=== PATIENT | male | born 1980 | race Caucasian/White ===

== ENCOUNTER 2021-03-13 20:50 | Emergency (ER) | payer BC | END 2021-03-13 21:45 | disposition home or self-care (01) | LOC: ERS 20:50 | DX: S60.222A Contusion of left hand, initial encounter (principal); F17.210 Nicotine dependence, cigarettes, uncomplicated; W23.0XXA Caught, crushed, jammed, or pinched between moving objects, initial encounter ==

== ENCOUNTER 2024-01-19 20:09 | Emergency (ER) | payer BC ==
[2024-01-19 20:33] LABS: #Basophils 0.06 10x3/uL (0.0-0.2); #Eosinophils Less than 0.03 10x3/uL (0.0-0.7); %Basophils 0.4 % (0.0-1.0); %Lymphocytes 14.8 % (21.0-51.0); %Monocytes 4.6 % (0.0-10.0); %Neutrophils 79.8 % (42.0-75.0); Hematocrit 43.8 % (42.0-52.0); Hemoglobin 14.7 g/dL (14.0-18.0); Mean Corpuscular HGB CONC 33.6 g/dL (32.0-36.0); Mean Corpuscular Hemoglobin 32.3 pg (27.0-31.0); Mean Corpuscular Volume 96.3 fL (78.0-98.0); Platelet Count 288 10x3/uL (130-400); RBC Distribution Width 13.8 % (11.5-14.5); Red Blood Cell (RBC) Count 4.55 mill/uL (4.70-6.10)
[2024-01-19 20:44] LABS: Bacteria/HPF None Seen HPF (None Seen); Bilirubin Negative (Negative); Blood, Urine Negative (Negative); CAUTI Indications for Culture Pelvic or flank pain; Clarity Extra Turbid (Clear); Glucose, Urine (Dipstick) Normal (Negative); Ketone, Urine Negative (Negative); Leukocyte Negative Leu/uL (Negative); Nitrite Negative (Negative); Protein, Urine (Dipstick) Negative (Neg-Trace); Specific Gravity, Urine 1.012 (1.002-1.036); Squamous Epithelial None Seen HPF (0-3); Urobilinogen Normal mg/dL (Less than 2); WBC/HPF 0-3 HPF (0-3)
[2024-01-19 20:46] LABS: ALT (SGPT) 10 U/L (8-55); AST (SGOT) 16 U/L (5-34); Albumin 4.4 g/dL (3.5-5.0); Alkaline Phosphatase 69 U/L (40-110); Anion Gap 16 mmol/L (10-20); BUN (Urea Nitrogen) 14 mg/dL (8.9-20.6); Bilirubin, Total 0.2 mg/dL (0.2-1.2); Calc. Creatinine Clearance 0 mL/min (70-130); Calcium 9.8 mg/dL (7.8-10.44); Carbon Dioxide 26 mmol/L (22-29); Chloride 100 mmol/L (98-107); Estimated GFR 65; Globulin 3.2 g/dL (2.4-3.5); Glucose 129 mg/dL (70-105); Lipase 20 U/L (8-78); Potassium 4.5 mmol/L (3.5-5.1); Protein, Total 7.6 g/dL (6.0-8.3); Sodium 137 mmol/L (136-145)
[2024-01-19] MEDS ORDERED: Acetaminophen 500 MG TAB ONE (20:55)
[2024-01-19] MEDS ORDERED: Ketorolac Tromethamine 30 MG (1 mL) VIAL ONE ×2 (20:55→20:56)
[2024-01-19 20:59] LABS: RBC/HPF 0-3 HPF (0-3)
[2024-01-19 21:02] LABS: Urine Culture Reflex No No
[2024-01-19] MEDS ORDERED: Morphine 4 MG/ML VIAL ONE ×2 (21:51→23:38)
[2024-01-19] MEDS ORDERED: Ondansetron PF 4 MG/2 ML Vial ONE (21:52)
== END 2024-01-20 00:48 | disposition home or self-care (01) ==
LOC: ERS 20:09
DX: N20.0 Calculus of kidney (principal); N17.9 Acute kidney failure, unspecified; R03.0 Elevated blood-pressure reading, without diagnosis of hypertension; F17.210 Nicotine dependence, cigarettes, uncomplicated; Z55.6 Problems related to health literacy
CPT/HCPCS: 36415; 74176; 80053; 81001; 83690; 85025; 87086; J1885; J2272; J2405

== ENCOUNTER 2024-01-20 06:53 | Day surgery (SDC) | payer BC ==
[2024-01-20] MEDS ORDERED: Ondansetron PF 4 MG/2 ML Vial ONE ×3 (07:27→09:52)
[2024-01-20] MEDS ORDERED: Morphine 4 MG/ML VIAL ONE (07:27)
[2024-01-20] MEDS ORDERED: Iopamidol 15 ML ONE (07:45)
[2024-01-20] MEDS ORDERED: Morphine 2 MG/ML VIAL ONE (07:52)
[2024-01-20 08:16] LABS: #Basophils 0.09 10x3/uL (0.0-0.2); %Basophils 0.4 % (0.0-1.0); %Eosinophils 0.8 % (0.0-10.0); %Lymphocytes 25.2 % (21.0-51.0); %Monocytes 8.6 % (0.0-10.0); %Neutrophils 64.4 % (42.0-75.0); Hemoglobin 14.3 g/dL (14.0-18.0); Mean Corpuscular HGB CONC 33.3 g/dL (32.0-36.0); Mean Corpuscular Hemoglobin 32.2 pg (27.0-31.0); Mean Corpuscular Volume 96.8 fL (78.0-98.0); Mean Platelet Volume 10.2 fL (7.4-10.4); Platelet Count 268 10x3/uL (130-400); RBC Distribution Width 13.7 % (11.5-14.5); Red Blood Cell (RBC) Count 4.44 mill/uL (4.70-6.10)
[2024-01-20 08:41] LABS: Bilirubin, Total 0.5 mg/dL (0.2-1.2)
[2024-01-20] MEDS ORDERED: Ketorolac Tromethamine 30 MG (1 mL) VIAL ONE (08:52)
[2024-01-20 08:54] LABS: ALT (SGPT) 12 U/L (8-55); AST (SGOT) 22 U/L (5-34); Albumin 4.1 g/dL (3.5-5.0); Alkaline Phosphatase 61 U/L (40-110); Anion Gap 14 mmol/L (10-20); BUN (Urea Nitrogen) 16 mg/dL (8.9-20.6); Calc. Creatinine Clearance 0 mL/min (70-130); Calcium 9.2 mg/dL (7.8-10.44); Carbon Dioxide 24 mmol/L (22-29); Chloride 102 mmol/L (98-107); Estimated GFR 62; Globulin 2.9 g/dL (2.4-3.5); Glucose 83 mg/dL (70-105); Sodium 136 mmol/L (136-145)
[2024-01-20] MEDS ORDERED: Sodium Chloride 0.9% 10 ML ONE (09:21)
[2024-01-20] MEDS ORDERED: CEFAZOLIN 2 GM VIAL ONE (09:21)
[2024-01-20] MEDS ORDERED: Famotidine/PF 20 mg/2ml Vial ONE (09:25)
[2024-01-20] MEDS ORDERED: SUCCINYLCHOLINE/SOD CL,ISO/PF 200 MG/10 ML SYRINGE FS ONE (09:29)
[2024-01-20] MEDS ORDERED: Lidocaine 2% PF 5 ML VIAL ONE (09:30)
[2024-01-20] MEDS ORDERED: PROPOFOL 20 ML ONE (09:30)
[2024-01-20] MEDS ORDERED: fentaNYL PF 100 MCG/2 ML SYRINGE ONE ×2 (09:31→10:57)
[2024-01-20] MEDS ORDERED: Dexamethasone 4 mg/ml Vial ONE (09:37)
[2024-01-20] MEDS ORDERED: Promethazine HCl 25 MG/ML VIAL ONE (09:41)
[2024-01-20] MEDS ORDERED: Droperidol 5 MG/2 ML VIAL ONE (09:41)
[2024-01-20] MEDS ORDERED: SUGAMMADEX SODIUM 200 MG/2 ML VIAL ONE (09:52)
[2024-01-20] MEDS ORDERED: Rocuronium Bromide 10 MG/ML (10ML VIAL) ONE (09:59)
== END 2024-01-20 11:40 | disposition home or self-care (01) ==
LOC: ERS 06:53 → SDC 08:58
PROVIDERS: ATTEND Urology
PROC: 0T778DZ Dilation of Left Ureter with Intraluminal Device, Via Natural or Artificial Opening Endoscopic (ICD-10-PCS; principal; 2024-01-20)
DX: N20.1 Calculus of ureter (principal); N13.30 Unspecified hydronephrosis; G47.30 Sleep apnea, unspecified; F90.9 Attention-deficit hyperactivity disorder, unspecified type; Z98.890 Other specified postprocedural states; Z79.899 Other long term (current) drug therapy
CPT/HCPCS: 36415; 74176; 74420; 80053; 81001; 83690; 85025; 87086; 96361; 96374; 96375; 96376; C2617; J1100; J1790; J1885; J2272; J2405; J2550; J2704; J3490; Q9967